=== PATIENT | female | born 1990 | race Hispanic/Latino ===

== ENCOUNTER 2025-05-02 18:01 | Emergency (ER) | payer SELFPAY ==
[2025-05-02 18:02] VITALS: BP 140/94
[2025-05-02 18:25] LABS: Hematocrit 41.7 % (37.0-47.0); Hemoglobin 14.6 g/dL (12.0-16.0); Mean Corp Hgb Conc. 35.0 g/dL (33.0-37.0); Mean Corpuscular Volume 87.6 fL (81.0-99.0); Nucleated Red Blood Cells % 0 %; Platelet Count 295 10^3/uL (130-400); Red Cell Dist. Width 12.7 % (11.5-14.5)
[2025-05-02 18:37] LABS: HCG, Serum Qualitative Screen Negative
[2025-05-02 18:38] LABS: ALT (SGPT) 41 U/L (0-35); AST (SGOT) 31 U/L (14-36); Albumin 4.9 g/dl (3.5-5.0); Alkaline Phosphatase 78 U/L (38-126); Blood Urea Nitrogen 16 mg/dl (7-17); Calcium 9.6 mg/dl (8.4-10.2); Carbon Dioxide 26 mmol/L (22-30); Chloride 105 mmol/L (98-107); Glucose 113 mg/dl (70-99); Potassium 4.2 mmol/L (3.5-5.1); Sodium 139 mmol/L (135-145); Total Protein 8.3 g/dl (6.3-8.2); eGFR > 60.00
[2025-05-02 18:49] LABS: Troponin I < 0.012 ng/ml
--- NOTE | 2025-05-02 19:36 | ED.GENMED ---
History of Present Illness
General
Chief Complaint: Headache
Time Seen by Provider: 05/02/25 19:36
History of Present Illness
History of Present Illness:
TIME OF INITIAL EVALUATION
- 7:35 PM
REVIEW OF OLD RECORDS
- The patient has history of headache. I reviewed records, the patient was seen here with a headache in 2022. No evidence of prior neuroimaging noted.
CHIEF COMPLAINT(S)
Headache
HISTORY OF PRESENT ILLNESS
The patient is a 34-year-old female who presents with a headache that started earlier today. She describes the headache as feeling intense and heavy, primarily at the top of her head. There is no photophobia, as light does not appear to aggravate
her symptoms. However, she reports nausea, though no vomiting has occurred. She denies any recent head trauma or injuries. The patient mentions a similar episode in 2022 where she felt sensitive to light and preferred to stay in a dark environment,
which was interpreted as a migraine.
PHYSICAL EXAM
- General: Well appearing but appears slightly uncomfortable
- HEENT: Moist oral mucosa
- Cardiovascular: No murmurs, normal heart rate, regular rhythm, No chest wall tenderness
- Pulmonary: No respiratory distress, breath sounds are clear and equal
- Abdomen: Soft with no peritoneal signs, no tenderness
- Neurologic: Excellent strength all extremities, no coordination deficits, normal finger-nose testing
- Psychiatric: Appropriate mental status, normal insight and judgement
- Extremities: Nontender, no edema, moves all extremities equally
- Skin: No rash, no lesions
PLAN
A computed tomography (CT) scan of the brain will be ordered to rule out any acute intracranial pathology, as the patient has not had previous brain imaging. Additionally, intravenous access will be secured to administer medications typically used
for migraine-type headaches to assess their efficacy in alleviating the patients symptoms.
DIFFERENTIAL DIAGNOSIS
The Differential Diagnosis includes, in no particular order and is not limited to:
1. Migraine headache
2. Tension-type headache
3. Cluster headache
4. Sinus headache
5. Cervicogenic headache
6. Medication overuse headache
7. Temporal arteritis
8. Intracranial hypertension
9. Subarachnoid hemorrhage
10. Brain tumor
RADIOLOGY
- CT head shows no acute abnormality
EKG
- Sinus 80, nonspecific ST abnormality
LABS
- CBC and chemistries unremarkable, troponin less than 0.012
UPDATE
-SUMMARY OF ENCOUNTER
The patient, a 34-year-old female, was evaluated in the emergency department for a severe headache that started earlier today. There was concern for an underlying acute intracranial condition, prompting the decision to order a CT scan of the brain,
which returned with no abnormalities. The patients symptoms and history are suggestive of a migraine-type headache. The patient was administered medications typically used for migraines, which led to an improvement in the headache severity. Blood
work was ordered, and no abnormalities were detected.
Patient was given Toradol, Reglan/Benadryl, fluid and has improved on reassessed
DISPOSITION
Discharge.
EMERGENCY TREATMENTS ADMINISTERED
The patient received medication for treating a migraine, though the specific medications are not detailed in the transcript.
PLAN
The patient is advised to use cnmu-uij-vouqsac ibuprofen (Motrin) at a prescription strength of 800 mg every eight hours if needed for pain management of the headache. A prescription for nausea medication and further analgesic options were offered
for symptom management upon request.
INDEPENDENT REVIEW OF LABS AND INTERPRETATION OF TESTS
My independent review of the CT scan of the brain is no acute intracranial pathology detected.
PATIENT EDUCATION AND COUNSELING
The patient was educated about the potential migraine diagnosis and was informed about the use of nobu-uyn-xabygzk Motrin at prescription strength for headache management.
FOLLOW-UP INSTRUCTIONS
Please call the office immediately to schedule a follow-up visit with the primary care provider to reassess headache management and determine if further specialized evaluation, such as a neurological consult, is necessary.
MEDICATION RECONCILIATION
The patient was advised to use zxdt-utv-bnuutfc ibuprofen (Motrin) as needed.
MEDICAL DECISION MAKING
-Complexity of Data Reviewed: Differential diagnosis included migraine headache, tension-type headache, cluster headache, sinus headache, cervicogenic headache, medication overuse headache, temporal arteritis, intracranial hypertension, subarachnoid
hemorrhage, and brain tumor.
-Data:
Category 1
My independent interpretation: CT scan of the brain showing no intracranial pathology.
-Risk: Consideration of Admission/Observation: Escalation of care including admission/observation was considered given the complexity and risk of the patients presenting complaint, but the work-up revealed no acute life-threatening processes, and
the patients symptoms were well-controlled upon reevaluation. The patient was agreeable with discharge and is reliable for follow-up.
DIAGNOSIS
1. Migraine headache, unspecified, with improvement after treatment (ICD-10: G43.909)
Past History
Past History
ED Past Medical History: Hypothyroidism and Other (Headache); Negative Asthma, HTN, Hypercholesterolemia or NIDDM
ED Past Surgical History: None
Social History
Tobacco: Non-smoker
Alcohol: None
Personal: Single
Living: with family
Phy Exam
Physical Exam
Physical Exam:
See HPI
Course
Orders/Labs/Results
Orders:
Orders
05/02/25 18:08
Electrocardiogram (*1) Urgent
Reason for Study: Chest Pain
Cardiac Monitoring- Treatment ONCE
EKG- Treatment ONCE
IV Insert/Care/Rem.- Treatment PRN
Test Result ONCE
O2 Therapy [RESP] Urgent
Titrate/Wean O2 to maintain O2 sat greater than (%): 90
Special Instructions: Maintain sats >/=90%
Pulse Ox/spot Check [RESP] Urgent
Quantity: 1
Special Instructions: ON ROOM AIR
05/02/25 18:17
Complete Blood Count/With Diff Urgent
Comprehensive Metabolic Panel Urgent
HCG, Serum Qualitative Screen Urgent
Comment: Notify provider if positive test present
Troponin I Urgent
05/02/25 19:45
CT Head W/o Iv Contrast Urgent
Comment:
Reason For Exam: FARIA vomiting; hCG not needed
05/02/25 19:46
0.9% Sodium Chloride 1000 ml [Nss] 1,000 ml IV BOLUS
Diphenhydramine [Benadryl] 25 mg IV NOW STA
Ketorolac [Toradol] 15 mg IV NOW STA
Metoclopramide [Reglan] 10 mg IV NOW STA
Abnormal Lab Results
05/02/25
18:17
MPV 10.7 H fL
(7.4-10.4)
Absolute Neuts (auto) 7.0 H 10^3/uL
(1.4-6.5)
Glucose 113 H mg/dl
(70-99)
ALT 41 H U/L
(0-35)
Total Protein 8.3 H g/dl
(6.3-8.2)
05/02/25 18:17
05/02/25 18:17
Vital Signs
Initial and Last Documented VS:
Initial Vital Signs
Temp Pulse Resp BP Pulse Ox
36.5 C 92 18 140/94 98
05/02/25 18:02 05/02/25 18:02 05/02/25 18:02 05/02/25 18:02 05/02/25 18:02
Last Documented Vital Signs
Temp Pulse Resp BP Pulse Ox
36.5 C 78 18 133/87 100
05/02/25 18:02 05/02/25 19:45 05/02/25 19:45 05/02/25 19:39 05/02/25 19:45
*Pulse Oximetry
SaO2: 98
Oxygen Mode of Delivery: Room air
Patient hypoxic: no
*Critical Care Note
Total Time (30-74mins, 75-104mins- exclusive of procedures): Not Applicable
ED Attending Note
-
Portions of this chart may have been created with voice recognition software.� Occasional wrong word or��sound alike� substitutions may have occurred due to the inherent limitations of voice recognition software.
Discharge Plan
Departure
Patient Disposition: Home (Routine Discharge)
Date of Disposition: 05/02/25
Time of Disposition: 21:18
Patient with high blood pressure during this ER visit?: Yes
Discharge Problem:
Headache
Instructions: Headache, Adult (DC)
Prescriptions:
New
ondansetron HCl 4 mg tablet
4 mg PO Q8H PRN (Reason: nausea and vomiting) Qty: 14 0RF
Referrals:
UNKNOWN - PT DOES,NOT KNOW [Unknown Provider]
Activity Restrictions/Additional Instructions:
[place] 4 ibuprofenos de venta ioana cada 8 horas con alimentos calvin unos d�as. La tomograf�a computarizada cerebral no muestra ninguna anomal�a. Los an�lisis de celine son normales. Le enviar� phoebe receta de Zofran (medicamento para las n�useas) a
aponte farmacia. Devu�lvalo aqu� si empeora.
Interventions
Interventions:
*Risk Screen - Suicide Last Done: 05/02/25 18:02
*General Assessment Last Done: 05/02/25 19:42
*Neglect/Abuse Screening Last Done: 05/02/25 18:02
*ED- Fall Risk Assessment Last Done: 05/02/25 19:42
*ED COVID-19 Vaccine History Last Done: 05/02/25 19:42
ED- Neurological Assessment Last Done: 05/02/25 19:42
Discharge Date and Time
Print Language: GREENLANDIC
[2025-05-02 19:39] VITALS: BP 133/87
[2025-05-02 19:41] VITALS: BMI 36.8
[2025-05-02] MEDS: REGLAN 10 MG IV (19:54)
[2025-05-02] MEDS: TORADOL 15 MG IV (19:54)
[2025-05-02] MEDS: BENADRYL 25 MG IV (19:55)
[2025-05-02] MEDS: NSS 1000 IV (19:57)
== END 2025-05-02 22:20 | disposition home or self-care (01) ==
LOC: EMR 18:01
PROVIDERS: Emergency Medicine; EMERGENCY PHYSICIAN Emergency Medicine
DX: R51.9 Headache, unspecified (principal); E03.9 Hypothyroidism, unspecified
CPT/HCPCS: 96374; 96375; 96361; 99284; 70450; 80053; 84484; 84703; 85025; 93005

== ENCOUNTER → 2025-10-18 08:29 | Outpatient (REF) | payer OTHER, SELFPAY ==
[2025-10-18 09:52] LABS: Hematocrit 39.9 % (37.0-47.0); Hemoglobin 13.5 g/dL (12.0-16.0); Mean Corp Hgb Conc. 33.8 g/dL (33.0-37.0); Mean Corpuscular Volume 90.7 fL (81.0-99.0); Platelet Count 276 10^3/uL (130-400); Red Cell Dist. Width 12.7 % (11.5-14.5)
[2025-10-18 10:37] LABS: ALT (SGPT) 45 U/L (0-35); AST (SGOT) 29 U/L (14-36); Albumin 4.5 g/dl (3.5-5.0); Alkaline Phosphatase 126 U/L (38-126); Blood Urea Nitrogen 13 mg/dl (7-17); Calcium 8.9 mg/dl (8.4-10.2); Carbon Dioxide 19 mmol/L (22-30); Chloride 107 mmol/L (98-107); Glucose 103 mg/dl (70-99); Potassium 4.3 mmol/L (3.5-5.1); Sodium 136 mmol/L (135-145); Total Protein 7.6 g/dl (6.3-8.2); eGFR > 60.00
[2025-10-18 11:32] LABS: Glycohemoglobin (HgbA1c) 5.4 % (4.0-5.9)
== END ==
LOC: REG 08:29
PROVIDERS: ATTENDING PHYSICIAN Nurse Practitioner Adult Health
DX: Z00.00 Encounter for general adult medical examination without abnormal findings (principal); Z83.3 Family history of diabetes mellitus
CPT/HCPCS: 36415; 80053; 83036; 84439; 84443; 85027